=== PATIENT | female | born 1985 | race Two or more races ===

== ENCOUNTER → 2024-03-10 13:06 | Outpatient (REF) | payer OTHER, SELFPAY | LOC: RAD 13:06 | PROVIDERS: ATTENDING PHYSICIAN Obstetrics & Gynecology; FAMILY PHYSICIAN Nurse Practitioner Family | DX: O02.81 Inappropriate change in quantitative human chorionic gonadotropin (hCG) in early pregnancy (principal) | CPT/HCPCS: 76801; 76817 ==

== ENCOUNTER 2024-10-17 08:23 | Observation (INO) | payer OTHER, SELFPAY ==
[2024-10-17 08:53] VITALS: BP 124/54; BMI 27.5
[2024-10-17] MEDS: TAMIFLU 75 MG PO (09:28)
== END 2024-10-17 09:44 | disposition home or self-care (01) ==
LOC: LDRP 08:23
PROVIDERS: ADMITTING PHYSICIAN Obstetrics & Gynecology; FAMILY PHYSICIAN Family Medicine
DX: O36.8130 Decreased fetal movements, third trimester, not applicable or unspecified (principal); Z3A.37 37 weeks gestation of pregnancy; J10.1 Influenza due to other identified influenza virus with other respiratory manifestations
CPT/HCPCS: 59025; G0378

== ENCOUNTER 2024-10-27 13:53 | Inpatient (IN) | payer OTHER, SELFPAY ==
[2024-10-27 14:00] VITALS: BMI 27.5
[2024-10-27 14:03] VITALS: BP 109/70
[2024-10-27 14:48] LABS: % Basophils 0.2 % (0-2); % Eosinophils 0.4 % (0-6); % Immature Granulocytes 1.4 % (0-0.5); % Lymphocytes 12.9 % (20.5-51.1); % Monocytes 8.3 % (1.7-9.3); % Neutrophils 76.8 % (42.2-75.2); Absolute Immature Granulocytes 0.1 10^3/uL (0-0.05); Absolute Lymphocytes 0.7 10^3/uL (1.2-3.4); Absolute Monocytes 0.5 10^3/uL (0.1-0.6); Absolute Neutrophils 4.3 10^3/uL (1.4-6.5); Hematocrit 30.6 % (37.0-47.0); Hemoglobin 10.3 g/dL (12.0-16.0); Mean Corp Hgb Conc. 33.7 g/dL (33.0-37.0); Mean Corpuscular Hgb 29.4 pg (27.0-31.0); Mean Corpuscular Volume 87.4 fL (81.0-99.0); Mean Platelet Volume 11.6 fL (7.4-10.4); Nucleated Red Blood Cells % 0 %; Platelet Count 176 10^3/uL (130-400); Red Cell Dist. Width 13.2 % (11.5-14.5); White Blood Cell Count 5.6 10^3/uL (4.8-10.8)
[2024-10-27] MEDS: PITOCIN 30 UNITS/NSS 500 ML IV ×2 (15:02→18:45)
[2024-10-27] MEDS: SUBLIMAZE 100 MCG EPIDURAL (17:16)
[2024-10-27] MEDS: FENTANYL/BUPIVACAINE 100 EPIDURAL (17:23)
[2024-10-28] MEDS: MOTRIN 600 MG PO ×3 (02:26→20:02)
[2024-10-28 05:48] LABS: Hematocrit 28.8 % (37.0-47.0); Hemoglobin 9.4 g/dL (12.0-16.0)
[2024-10-28] MEDS: PRENATAL PLUS 1 TABLET PO (07:59)
[2024-10-28] MEDS: FEOSOL 325 MG PO (09:31)
[2024-10-28 15:54] LABS: Syphilis/T. pallidum Ab Reflex Negative (Negative)
[2024-10-29] MEDS: FEOSOL 325 MG PO (07:34)
[2024-10-29] MEDS: PRENATAL PLUS 1 TABLET PO (07:34)
[2024-10-29] MEDS: SENOKOT-S 1 TABLET PO (07:38)
[2024-10-29] MEDS: MOTRIN 600 MG PO (07:41)
== END 2024-10-29 16:48 | disposition home or self-care (01) | DRG 806 ==
LOC: LDRP 13:53
PROVIDERS: ADMITTING PHYSICIAN Obstetrics & Gynecology; ATTENDING PHYSICIAN Obstetrics & Gynecology
PROC: 0UQMXZZ Repair Vulva, External Approach (ICD-10-PCS; 2024-10-27)
PROC: 4A0HXCZ Measurement of Products of Conception, Cardiac Rate, External Approach (ICD-10-PCS; 2024-10-27)
PROC: 0KQM0ZZ Repair Perineum Muscle, Open Approach (ICD-10-PCS; 2024-10-27)
PROC: 10E0XZZ Delivery of Products of Conception, External Approach (ICD-10-PCS; 2024-10-27)
PROC: 3E033VJ Introduction of Other Hormone into Peripheral Vein, Percutaneous Approach (ICD-10-PCS; 2024-10-27)
DX: O36.8130 Decreased fetal movements, third trimester, not applicable or unspecified (principal); O99.12 Other diseases of the blood and blood-forming organs and certain disorders involving the immune mechanism complicating childbirth; Z37.0 Single live birth; D69.6 Thrombocytopenia, unspecified; O70.1 Second degree perineal laceration during delivery; Z3A.39 39 weeks gestation of pregnancy
CPT/HCPCS: 85014; 85018; 85025; 86780; 86850; 86900; 86901